=== PATIENT | male | born 1970 | race Caucasian/White ===

== ENCOUNTER 2018-02-19 22:49 | Emergency (ER) | payer OTHER ==
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
[2018-02-20] MEDS ORDERED: CARISOPRODOL 350 MG TABLET PO ONE (00:31)
[2018-02-20] MEDS ORDERED: PREDNISONE 20 MG TABLET PO ONE (00:31)
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
[2018-02-20 02:50] VITALS: BP 116/76
== END 2018-02-20 02:47 | disposition home or self-care (01) ==
LOC: ER 22:49
DX: S39.92XA Unspecified injury of lower back, initial encounter (principal); M54.2 Cervicalgia; M54.9 Dorsalgia, unspecified; V49.40XA Driver injured in collision with unspecified motor vehicles in traffic accident, initial encounter; F17.210 Nicotine dependence, cigarettes, uncomplicated
CPT/HCPCS: 99284; 72110; J3490; J7512